=== PATIENT | female | born 1955 | race American Indian/Alaskan Native ===

== ENCOUNTER 2016-06-11 13:21 | Emergency (ER) | payer MEDICARE, OTHER ==
[2016-06-11 13:48] VITALS: BP 129/54
[2016-06-11] MEDS ORDERED: Sodium Chloride 0.9% 1,000 ML IV ONE (14:36)
--- NOTE | 2016-06-11 14:44 | EDM.PDOC ---
ED HPI GI/ABDOMINAL - General Chief Complaint: Abdominal Pain Stated Complaint: EXCRUTIATING ABD PAIN Time Seen by Provider: 06/11/16 14:35 Source of Information: Reports: Patient History Limitations: Reports: No limitations - History of Present Illness INITIAL COMMENTS - FREE TEXT/NARRATIVE: This 61 yo female patient reports to the ED with lower abdominal pain. The patient reports her pain started about 4 days ago and has been consistent since the start of her pain. The patient reports she has been drinking a lot of water over the past couple of weeks, but has noticed that she has been getting up 6- 10 times to go to the bathroom. The patient reports she has had a previous similar episode due to kidney stones. The patient attempted to be seen at the [facility], but was sent directly to the ED without being seen. Symptom Onset Date: 06/08/16 Timing/Duration: Reports: Constant, Getting worse Location: suprapubic Quality: Reports: ache, cramping Severity: severe Worsens with: Reports: palpation Associated Symptoms (-Female): Reports: denies other symptoms - Related Data Allergies/ADRs: Allergies Allergy/AdvReac Type Severity Reaction Status Date / Time acetaminophen Allergy Nausea and Verified 06/11/16 13:38 [From Darvocet-N 100] Vomiting codeine Allergy Nausea Verified 06/11/16 13:38 gabapentin Allergy Swelling Verified 06/11/16 13:39 pregabalin [From Lyrica] Allergy Weakness Verified 06/11/16 13:39 propoxyphene Allergy Nausea and Verified 06/11/16 13:38 Vomiting propoxyphene napsylate Allergy Nausea and Verified 06/11/16 13:38 [From Darvocet-N 100] Vomiting tramadol Allergy Hives Verified 06/11/16 13:39 Home Meds: Home Meds Aspirin [Halfprin] 81 mg PO DAILY 02/24/13 [History] Clopidogrel [Plavix] 75 mg PO DAILY 02/24/13 [History] Ezetimibe [Zetia] 10 mg PO DAILY 02/24/13 [History] Lisinopril 20 mg PO DAILY 02/24/13 [History] Nitroglycerin [Nitrostat] 0.4 mg SL ASDIRECTED PRN 02/24/13 [History] Pantoprazole Sodium [Protonix] 40 mg PO DAILY 12/07/13 [History] Ranitidine HCl 150 mg PO BID 08/15/15 [History] Simvastatin [Zocor] 40 mg PO BEDTIME 08/15/15 [History] metFORMIN HCl [Metformin HCl] 250 mg PO DAILY 08/15/15 [History] Past Medical History HEENT History: Reports: Hard of hearing, Impaired vision Cardiovascular History: Reports: High cholesterol, Hypertension Respiratory History: Reports: None Gastrointestinal History: Reports: GERD Genitourinary History: Reports: None Other OB/BYN History: tieze disease Musculoskeletal History: Reports: None, Fibromyalgia Endocrine/Metabolic History: Reports: Diabetes, type II Immunologic History: Reports: None Oncologic (Cancer) History: Reports: None Social & Family History - Family History Family Medical History: Noncontributory - Tobacco Use Smoking Status *Q: Former Smoker - Caffeine Use Caffeine Use: Reports: Coffee - Recreational Drug Use Recreational Drug Use: No ED ROS GENERAL - Review of Systems Review Of Systems: ROS reveals no pertinent complaints other than HPI. ED EXAM, GI/ABD - Physical Exam Exam: See Below Exam Limited By: No limitations General Appearance: alert, WD/WN, moderate distress, obese Eyes: bilateral: normal appearance, EOMI Ears: normal external exam, normal canal, hearing grossly normal, normal TMs Nose: normal inspection, normal mucosa, no blood Throat/Mouth: Normal inspection, Normal lips, Normal teeth, Normal gums, Normal oropharynx, Normal voice, No airway compromise Head: atraumatic, normocephalic Neck: normal inspection, supple, non-tender, full range of motion Respiratory/Chest: no respiratory distress, lungs clear, normal breath sounds, no accessory muscle use, chest non-tender Cardiovascular: normal peripheral pulses, regular rate, rhythm, no edema, no gallop, no JVD, no murmur, no rub GI/Abdominal: normal bowel sounds, soft, no organomegaly, no distention, no abnormal bruit, no mass, tenderness (lower abdomen) (Female) Exam: Deferred Rectal (Female) Exam: Deferred Back Exam: normal inspection, full range of motion, NT Extremities: normal inspection, normal range of motion, non-tender, normal capillary refill, no pedal edema Neurological: alert, oriented, CN II-XII intact, normal cognition, normal gait, normal reflexes, no motor/sensory deficits Psychiatric: normal affect, normal mood Skin Exam: Warm, Dry, Intact, Normal color, No rash Lymphatic: no adenopathy Course - Vital Signs Last Recorded V/S: Last Vital Signs Temp 36.2 C 06/11/16 13:40 Pulse 82 06/11/16 13:40 Resp 14 06/11/16 13:40 BP 129/54 L 06/11/16 13:40 Pulse Ox - Orders/Labs/Meds Orders: Active Orders 24 hr Category Date Time Status CULTURE BLOOD [BC] Stat Lab 06/11/16 14:18 Received CULTURE BLOOD [BC] Stat Lab 06/11/16 14:24 Results Blood Culture x2 Reflex Set [OM.PC] Stat Oth 06/11/16 14:10 Ordered Labs: Laboratory Tests 06/11/16 06/11/16 06/11/16 Range/Units 13:58 13:58 14:24 WBC 11.5 H (5.0-10.0) 10^3/uL RBC 5.05 (4.2-5.4) 10^6/uL Hgb 14.4 (12.0-16.0) g/dL Hct 43.0 (37.0-47.0) % MCV 85.1 (80-100) fL MCH 28.5 (27.0-34.0) pg MCHC 33.5 (33.0-35.0) g/dL Plt Count 286 (150-450) 10^3/uL Neut % (Auto) 65.9 (42.2-75.2) % Lymph % (Auto) 24.8 (20.5-50.1) % [place] % (Auto) 7.6 (2-8) % Eos % (Auto) 1.4 (1.0-3.0) % Baso % (Auto) 0.3 (0.0-1.0) % Sodium (135-145) mmol/L Potassium (3.6-5.0) mmol/L Chloride (101-111) mmol/L Carbon Dioxide (21.0-31.0) mmol/L Anion Gap BUN (7-18) mg/dL Creatinine (0.6-1.3) mg/dL Est Cr Clr Drug Dosing mL/min Estimated GFR (MDRD) BUN/Creatinine Ratio Glucose (74-105) mg/dL Lactic Acid (0.5-2.2) mmol/L Calcium (8.4-10.2) mg/dl Magnesium (1.8-2.5) mg/dL Total Bilirubin (0.2-1.0) mg/dL AST (10-42) IU/L ALT (10-60) IU/L Alkaline Phosphatase (42-121) IU/L Ammonia (11-35) umol/L Total Protein (6.7-8.2) g/dl Albumin (3.2-5.5) g/dl Globulin Albumin/Globulin Ratio Amylase (28-100) U/L Lipase (22-51) U/L Urine Color Yellow (YELLOW) Urine Appearance Slightly cloudy (CLEAR) Urine pH 5.0 (5.0-9.0) Ur Specific [place] 1.020 (1.005-1.030) Urine Protein Negative (NEGATIVE) Urine Glucose (UA) Negative (NEGATIVE) Urine Ketones Negative (NEGATIVE) Urine Occult Blood Negative (NEGATIVE) Urine Nitrite Negative (NEGATIVE) Urine Bilirubin Negative (NEGATIVE) Urine Urobilinogen 0.2 (0.2-1.0) mg/dL Ur Leukocyte Esterase Trace H (NEGATIVE) Urine RBC 0-5 /HPF Urine WBC 5-10 H (0-5/HPF) /HPF Ur Epithelial Cells Few /HPF Amorphous Sediment Few (0/HPF) /HPF Urine Bacteria Few (0-FEW/HPF) /HPF Salicylates Urine Opiates Screen Negative (NEGATIVE) Ur Oxycodone Screen Negative (NEGATIVE) Urine Methadone Screen Negative (NEGATIVE) Acetaminophen Ur Barbiturates Screen Negative (NEGATIVE) U Tricyclic Antidepress Negative (NEGATIVE) Ur Phencyclidine Scrn Negative (NEGATIVE) Ur Amphetamine Screen Negative (NEGATIVE) U Methamphetamines Scrn Positive H (NEGATIVE) Urine MDMA Screen Negative (NEGATIVE) U Benzodiazepines Scrn Negative (NEGATIVE) Urine Cocaine Screen Negative (NEGATIVE) U Marijuana (THC) Screen Negative (NEGATIVE) Ethyl Alcohol mg/dL 06/11/16 06/11/16 06/11/16 Range/Units 14:24 14:24 14:24 WBC (5.0-10.0) 10^3/uL RBC (4.2-5.4) 10^6/uL Hgb (12.0-16.0) g/dL Hct (37.0-47.0) % MCV (80-100) fL MCH (27.0-34.0) pg MCHC (33.0-35.0) g/dL Plt Count (150-450) 10^3/uL Neut % (Auto) (42.2-75.2) % Lymph % (Auto) (20.5-50.1) % [place] % (Auto) (2-8) % Eos % (Auto) (1.0-3.0) % Baso % (Auto) (0.0-1.0) % Sodium 137 (135-145) mmol/L Potassium 4.3 (3.6-5.0) mmol/L Chloride 102 (101-111) mmol/L Carbon Dioxide 26.0 (21.0-31.0) mmol/L Anion Gap 13.3 BUN 19 H (7-18) mg/dL Creatinine 0.8 (0.6-1.3) mg/dL Est Cr Clr Drug Dosing 78.85 mL/min Estimated GFR (MDRD) > 60 BUN/Creatinine Ratio 23.75 Glucose 142 H (74-105) mg/dL Lactic Acid 2.2 (0.5-2.2) mmol/L Calcium 9.2 (8.4-10.2) mg/dl Magnesium 1.8 (1.8-2.5) mg/dL Total Bilirubin 0.4 (0.2-1.0) mg/dL AST 25 (10-42) IU/L ALT 31 (10-60) IU/L Alkaline Phosphatase 103 (42-121) IU/L Ammonia 36 H (11-35) umol/L Total Protein 6.9 (6.7-8.2) g/dl Albumin 4.1 (3.2-5.5) g/dl Globulin 2.8 Albumin/Globulin Ratio 1.46 Amylase 34 (28-100) U/L Lipase 26 (22-51) U/L Urine Color (YELLOW) Urine Appearance (CLEAR) Urine pH (5.0-9.0) Ur Specific [place] (1.005-1.030) Urine Protein (NEGATIVE) Urine Glucose (UA) (NEGATIVE) Urine Ketones (NEGATIVE) Urine Occult Blood (NEGATIVE) Urine Nitrite (NEGATIVE) Urine Bilirubin (NEGATIVE) Urine Urobilinogen (0.2-1.0) mg/dL Ur Leukocyte Esterase (NEGATIVE) Urine RBC /HPF Urine WBC (0-5/HPF) /HPF Ur Epithelial Cells /HPF Amorphous Sediment (0/HPF) /HPF Urine Bacteria (0-FEW/HPF) /HPF Salicylates < 4 Urine Opiates Screen (NEGATIVE) Ur Oxycodone Screen (NEGATIVE) Urine Methadone Screen (NEGATIVE) Acetaminophen < 10 Ur Barbiturates Screen (NEGATIVE) U Tricyclic Antidepress (NEGATIVE) Ur Phencyclidine Scrn (NEGATIVE) Ur Amphetamine Screen (NEGATIVE) U Methamphetamines Scrn (NEGATIVE) Urine MDMA Screen (NEGATIVE) U Benzodiazepines Scrn (NEGATIVE) Urine Cocaine Screen (NEGATIVE) U Marijuana (THC) Screen (NEGATIVE) Ethyl Alcohol < 5 mg/dL Meds: Medications Discontinued Medications Generic Name Dose Route Start Last Admin Trade Name Freq PRN Reason Stop Dose Admin Sodium Chloride 1,000 mls @ 999 mls/hr 06/11/16 14:36 06/11/16 14:56 Normal Saline IV 06/11/16 15:36 999 mls/hr .BOLUS ONE Administration Iopamidol 100 ml 06/11/16 15:31 06/11/16 16:16 Isovue-300 (61%) IVPUSH 06/11/16 15:32 100 ml ONETIME ONE Administration - Re-Assessments/Exams Free Text/Narrative Re-Assessment/Exam: 06/11/16 15:31 The patient was advised of the lab results. The patient was informed of the need for a CT of her abdomen. Departure - Departure Time of Disposition: 16:44 Disposition: Home, Self-Care 01 Condition: fair Clinical Impression: Urine retention UTI (urinary tract infection) Qualifiers: Urinary tract infection type: site unspecified Hematuria presence: without hematuria Qualified Code(s): N39.0 - Urinary tract infection, site not specified Instructions: Urinary Tract Infection, Adult, [id number], Acute Urinary Retention, Female, [id number] Forms: ED Department Discharge Care Plan Goals: The patient was advised of the examination, lab and CT results during the visit. The patient was given a script for Cipro (500 mg) #10 to take 1 by mouth 2 times per day for 5 days and Pyridium (200 mg) #6 to take 1 by mouth 3 times per day for 2 days. The patient should follow-up with her primary care facility for continued evaluation and further management. If the patient has any additional symptoms or concerns, the patient should visit her primary care facility or return to the emergency department. - My Orders Last 24 Hours: My Active Orders 06/11/16 14:10 Blood Culture x2 Reflex Set [OM.PC] Stat 06/11/16 14:18 CULTURE BLOOD [BC] Stat 06/11/16 14:24 CULTURE BLOOD [BC] Stat - Assessment/Plan Last 24 Hours: My Active Orders 06/11/16 14:10 Blood Culture x2 Reflex Set [OM.PC] Stat 06/11/16 14:18 CULTURE BLOOD [BC] Stat 06/11/16 14:24 CULTURE BLOOD [BC] Stat
[2016-06-11 14:55] LABS: CHLORIDE,CL 102 mmol/L (101-111); SODIUM,NA 137 mmol/L (135-145)
[2016-06-11 14:57] LABS: ACETAMINOPHEN < 10
[2016-06-11] MEDS ORDERED: Iopamidol 612 MG/ML 100 ML Bottle IVPUSH ONE (15:31)
--- NOTE | 2016-06-11 16:28 | CT ---
Clinical history: 61-year-old female with lower abdominal pain (white blood cell count 11,000). Scan technique: Volume acquisition of data from the abdomen and pelvis obtained without oral contras t but during intravenous administration of nonionic Isovue contrast while patient was lying supine o n the Siemens multi slice CT scanner [place], [place]. All data archived in the PACS system for storage, reformatting and study. Interpretation: 1. Cholecystectomy. Fatty liver with isolated small cysts left lobe. 2. Stomach, spleen, pancreas and adrenal glands anatomically correct and otherwise negative. 3. Atheromatous calcifications normal caliber aortoiliac vessels. Normal reniform size axis and conf iguration without sign of cortical mass lesion, nephrolithiasis or obstructive uropathy. 4. No sign of ventral wall or inguinal hernia. No pelvic or abdominal mass lesion, (apparent hystere ctomy), inflammatory "dirty" peritoneal fat, abscess, retroperitoneal lymphadenopathy, mechanical jacob wel obstruction, ascites or free intraperitoneal air. No diverticulitis. 5. Osteoporosis, multilevel disc disease and arthritis of the spine. 6. Normal cardiac silhouette. Lung bases clear. CONCLUSION: Cholecystectomy and fatty liver. No acute intraperitoneal abnormality.
== END 2016-06-11 17:15 | disposition home or self-care (01) ==
LOC: DL.ED 13:21
DX: N39.0 Urinary tract infection, site not specified (principal); E78.00 Pure hypercholesterolemia, unspecified; I10 Essential (primary) hypertension; K21.9 Gastro-esophageal reflux disease without esophagitis; E11.9 Type 2 diabetes mellitus without complications; Z88.5 Allergy status to narcotic agent; Z88.6 Allergy status to analgesic agent; Z88.8 Allergy status to other drugs, medicaments and biological substances; Z79.82 Long term (current) use of aspirin; Z79.899 Other long term (current) drug therapy; Z79.84 Long term (current) use of oral hypoglycemic drugs; Z87.891 Personal history of nicotine dependence
CPT/HCPCS: 36415; 74177; 80053; 80305; 81001; 82140; 82150; 83605; 83690; 83735; 85025; 87040; 96360; 96361; 99284; G0480; J7030; Q9967; 99283

== ENCOUNTER 2017-01-28 10:08 | Emergency (ER) | payer MEDICARE, OTHER ==
[2017-01-28] MEDS ORDERED: Sodium Chloride 0.9% 10 ML Syringe FLUSH PRN (10:27)
[2017-01-28 10:42] VITALS: BP 165/72
--- NOTE | 2017-01-28 10:44 | CR ---
Clinical history: 61-year-old female emergency Department with clinical "CVA". Interpretation: AP portable chest film unremarkable. Normal cardiac silhouette without cephalization of vascular flow, signs of alveolar edema or dependen t effusion. Reasonable inspiratory effort obese female without focal lobar atelectasis/collapse, segmental infilt rate, lung mass or hilar lymphadenopathy. No pneumothorax or free subdiaphragmatic air. CONCLUSION: No acute cardiopulmonary abnormality.
[2017-01-28 10:48] LABS: CHLORIDE,CL 103 mmol/L (101-111); SODIUM,NA 139 mmol/L (135-145)
--- NOTE | 2017-01-28 10:51 | CT ---
Clinical history: 1-year-old female history of "CVA" present now with numbness and tingling reported on December 2013 CT exam to have "old large lacunar infarct posterior limb internal capsule and persis tent asymmetric loss anterior horn right ventricle (noted April 2013). Follow-up evaluation please . Scan technique: Volume acquisition of data emergency unenhanced CT scan of the head and brain obtaine d with the patient lying supine on the Siemens multi slice CT scanner [facility]. All data archived in the PACS system for storage, reformatting and study. Interpretation: 1. Chronic effacement anterior horn right lateral ventricle and large lacunar type infarct posterior limb internal capsule on the right unchanged when compared directly to previous CT exam to January 07. 2. *New lacunar infarct, without surrounding edema or mass effect, contralateral internal capsule (po sterior limb) left cerebral hemisphere. Other signs of multi-infarct ischemic disease periventricular white matter scattered both cerebral hemispheres. 3. No supratentorial or posterior fossa mass lesion. Cerebellum and brainstem unremarkable. 4. No sign of acute intracerebral/intraventricular/subarachnoid bleed. No extracerebral epidural or s ubdural hematoma. 5. Cerebellum and brainstem unremarkable and unchanged since 2013. 6. Symmetric clear pneumatization of the paranasal sinuses. Nasal septum is straight in the midline. Mastoids unremarkable. CONCLUSION: Abnormal (see above). Multi-infarct ischemic disease. No sign of acute intracranial bleed .
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
[2017-01-28] MEDS ORDERED: Aspirin 81 MG Tab.Chew PO ONE (10:58)
--- NOTE | 2017-02-01 20:34 | EKG ---
01/28/2017 - RADHA LIPSCOMB - FINDINGS: I reviewed the EKG and agree with the machine's reading. [facility] /[id number]
== END 2017-01-28 11:40 ==
LOC: DL.ED 10:08
DX: I63.9 Cerebral infarction, unspecified (principal); Z87.891 Personal history of nicotine dependence; I10 Essential (primary) hypertension; E78.00 Pure hypercholesterolemia, unspecified; K21.9 Gastro-esophageal reflux disease without esophagitis; E11.9 Type 2 diabetes mellitus without complications; Z79.84 Long term (current) use of oral hypoglycemic drugs; Z79.02 Long term (current) use of antithrombotics/antiplatelets; Z79.899 Other long term (current) drug therapy; Z88.5 Allergy status to narcotic agent; Z88.8 Allergy status to other drugs, medicaments and biological substances; Z88.6 Allergy status to analgesic agent; Z86.73 Personal history of transient ischemic attack (TIA), and cerebral infarction without residual deficits
CPT/HCPCS: 36415; 70450; 71010; 80053; 84484; 85025; 85610; 93005; 99285; A9270; J7050; 93010

== ENCOUNTER 2017-03-07 19:23 | Emergency (ER) | payer MEDICARE, OTHER, MEDICAID ==
[2017-03-07] MEDS ORDERED: Morphine 2 MG/ML Syringe IVPUSH ONE (19:44)
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
[2017-03-07] MEDS ORDERED: Ondansetron 4 MG/2 ML SDV IV ONE (19:45)
[2017-03-07 20:16] LABS: CHLORIDE,CL 104 mmol/L (101-111); SODIUM,NA 135 mmol/L (135-145)
[2017-03-07 22:45] VITALS: BP 136/59
--- NOTE | 2017-03-10 16:33 | EKG ---
03/07/2017 RADHA MONREAL I reviewed the EKG and agree with the machine's reading. [facility] /[id number]
== END 2017-03-07 22:44 | disposition home or self-care (01) ==
LOC: DL.ED 19:23
DX: N64.4 Mastodynia (principal); I10 Essential (primary) hypertension; E78.00 Pure hypercholesterolemia, unspecified; K21.9 Gastro-esophageal reflux disease without esophagitis; E11.9 Type 2 diabetes mellitus without complications; Z95.5 Presence of coronary angioplasty implant and graft; Z79.82 Long term (current) use of aspirin; Z79.02 Long term (current) use of antithrombotics/antiplatelets; Z79.84 Long term (current) use of oral hypoglycemic drugs; Z79.899 Other long term (current) drug therapy; Z87.891 Personal history of nicotine dependence
CPT/HCPCS: 36415; 71010; 80053; 82553; 84484; 85025; 85379; 85610; 86140; 93005; 93010; 99284; J2270; J2405; 96374; 96375

== ENCOUNTER 2017-05-27 19:59 | Emergency (ER) | payer MEDICARE, OTHER ==
[2017-05-27 20:28] VITALS: BP 197/95
[2017-05-27 20:29] LABS: CHLORIDE,CL 101 mmol/L (101-111); SODIUM,NA 136 mmol/L (135-145)
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
--- NOTE | 2017-06-02 08:58 | EKG ---
05/27/2017- RADHA LIPSCOMB - FINDINGS: EKG, per my reading, shows sinus rhythm at the rate of [address]ressions. [facility] /[id number]
== END 2017-05-27 21:20 ==
LOC: DL.ED 19:59
DX: I63.9 Cerebral infarction, unspecified (principal); R29.710 NIHSS score 10; G83.20 Monoplegia of upper limb affecting unspecified side; E78.00 Pure hypercholesterolemia, unspecified; I10 Essential (primary) hypertension; E11.9 Type 2 diabetes mellitus without complications; Z87.891 Personal history of nicotine dependence; Z88.5 Allergy status to narcotic agent; Z88.8 Allergy status to other drugs, medicaments and biological substances; Z79.82 Long term (current) use of aspirin; Z79.84 Long term (current) use of oral hypoglycemic drugs; Z79.899 Other long term (current) drug therapy
CPT/HCPCS: 36415; 70450; 80053; 83735; 84484; 85025; 85610; 93005; 93010; 99285

== ENCOUNTER 2017-07-08 13:57 | Emergency (ER) | payer MEDICARE, OTHER ==
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
[2017-07-08 14:14] VITALS: BP 151/66
[2017-07-08 15:19] LABS: CHLORIDE,CL 104 mmol/L (101-111); SODIUM,NA 136 mmol/L (135-145)
== END 2017-07-08 18:48 | disposition left against medical advice (07) ==
LOC: DL.ED 13:57
DX: R06.02 Shortness of breath (principal); R05 Cough; E78.00 Pure hypercholesterolemia, unspecified; I10 Essential (primary) hypertension; I25.2 Old myocardial infarction; K21.9 Gastro-esophageal reflux disease without esophagitis; E11.9 Type 2 diabetes mellitus without complications; Z88.8 Allergy status to other drugs, medicaments and biological substances; Z88.5 Allergy status to narcotic agent; Z87.891 Personal history of nicotine dependence
CPT/HCPCS: 36415; 71046; 80053; 85025; 86308; 87081; 87430; 87804; 99282

== ENCOUNTER 2018-08-13 14:09 | Emergency (ER) | payer MEDICARE, OTHER ==
[2018-08-13 15:28] LABS: ANION GAP 20.5; CHLORIDE,CL 100 mmol/L (101-111); SODIUM,NA 135 mmol/L (135-145)
[2018-08-13 16:41] VITALS: BP 193/75
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
== END 2018-08-13 16:10 | disposition other institution (70) ==
LOC: DL.ED 14:09
DX: I63.9 Cerebral infarction, unspecified (principal); I15.8 Other secondary hypertension; E11.9 Type 2 diabetes mellitus without complications; I10 Essential (primary) hypertension; E78.00 Pure hypercholesterolemia, unspecified; I25.2 Old myocardial infarction; K21.9 Gastro-esophageal reflux disease without esophagitis; Z79.899 Other long term (current) drug therapy; Z88.6 Allergy status to analgesic agent; Z88.5 Allergy status to narcotic agent; Z88.8 Allergy status to other drugs, medicaments and biological substances
CPT/HCPCS: 36415; 70450; 80053; 82962; 84484; 85025; 85610; 93005; 96365; 99285; J2997

== ENCOUNTER 2018-11-15 08:13 | Day surgery (SDC) | payer MEDICARE ==
[2018-11-15] MEDS ORDERED: Sodium Chloride 0.9% 10 ML Syringe IV ONE (08:14)
[2018-11-15] MEDS ORDERED: Midazolam 1 MG/ML 2 ML SDV IV ONE (08:14)
[2018-11-15] MEDS ORDERED: Dexamethasone 4 MG/ML SDV IV ONE (08:14)
[2018-11-15] MEDS ORDERED: Acetaminophen 325 MG Tab PO PRN (08:30)
[2018-11-15] MEDS ORDERED: Proparacaine 0.5% Ophth Soln 15 ML Bottle EYERT ONE (08:30)
[2018-11-15] MEDS ORDERED: Moxifloxacin 0.5% Ophth Soln 3 ML Bottle EYERT ONE (08:30)
[2018-11-15] MEDS ORDERED: Cataract Ophth Solution EYERT ONE (08:30)
[2018-11-15] MEDS ORDERED: Timolol Maleate 0.5% Ophth Soln 5 ML Bottle EYERT ONE (08:30)
[2018-11-15] MEDS ORDERED: Povidone-Iodine 5% Sterile Ophth Soln 30 ML Bottle EYERT ONE ×2 (08:30→09:45)
[2018-11-15] MEDS ORDERED: Phenylephrine 10% Ophth Soln 5 ML Bot EYERT ONE (08:30)
[2018-11-15] MEDS ORDERED: Sodium Chloride 0.9% 10 ML Syringe FLUSH PRN (08:30)
[2018-11-15] MEDS ORDERED: Phenylephrine 10% Ophth Soln 5 ML Bot EYERT PRN (08:30)
[2018-11-15] MEDS ORDERED: Ondansetron 4 MG/2 ML SDV IVPUSH PRN (08:30)
[2018-11-15] MEDS ORDERED: Lidocaine 1% 30 ML SDV INJECT ONE (09:45)
[2018-11-15] MEDS ORDERED: Tetracaine HCl/PF 0.5% 4 ML Bottle EYERT ONE (09:45)
[2018-11-15] MEDS ORDERED: Apraclonidine 0.5% Ophth Soln 5 ML Bot EYERT ONE (09:45)
[2018-11-15] MEDS ORDERED: Diclofenac Sodium 0.1% Ophth Soln 5 ML Bottle EYERT ONE (09:46)
[2018-11-15] MEDS ORDERED: Dexamethasone/Tobramycin 0.1-0.3% Ophth Oint 3.5 GM Tube EYERT ONE (09:46)
[2018-11-15] MEDS ORDERED: Balanced Salt Solution Ophth Irrig 500 ML Bottle IOCULAR ONE (09:46)
[2018-11-15] MEDS ORDERED: Chondroitin Sulfate/Hyaluronate Sodium Ophth Inj 0.75 ML Syringe EYERT ONE (09:47)
[2018-11-15] MEDS ORDERED: Vancomycin 500 MG SDV EYERT ONE (09:47)
[2018-11-15 11:09] VITALS: BP 141/57
--- NOTE | 2018-11-15 16:24 | OR ---
DATE: 11/15/2018 PREOPERATIVE DIAGNOSIS: Visually significant mixed cataract, right eye. POSTOPERATIVE DIAGNOSIS: Visually significant mixed cataract, right eye. PROCEDURE: Extracapsular cataract extraction with intraocular lens implant, right eye. ANESTHESIA: Topical/local MAC. COMPLICATIONS: None. INDICATION: Ms. Ramirez was seen in the clinic. She has complained of a progressive decrease in vision. She has difficulty with bright lights and glare, difficulty seeing fine print, difficulty seeing at distance. Examination reveals mixed cataract. I offered cataract surgery and I explained risks preoperatively including, but not limited to, infection, retinal detachment, loss of vision, need for additional surgery, amongst others. We discussed implant options. She requested surgery with a monofocal implant. She is comfortable wearing spectacle correction following surgery if necessary. OPERATIVE DESCRIPTION: After informed consent was obtained and the risks, benefits, and alternatives were explained, the patient was brought to the operative suite and topical anesthesia was administered. The patient was then prepped and draped in the sterile fashion and attention was placed on the right eye. A sterile lid speculum was placed into the right eye to allow operative exposure. A full-thickness paracentesis was made in the temporal portion of the operative eye. Preservative-free lidocaine 0.1 mL was injected into the anterior chamber followed by viscoelastic. A full-thickness corneal incision was then made into the anterior chamber. A bent needle cystotome was used to create a small solis in the anterior capsule. The capsulorrhexis forceps was then used to create a 360-degree curvilinear capsulorrhexis. The nucleus was then removed using a phacoemulsification handpiece and the remaining cortical material was then removed with irrigation and aspiration handpiece. Following removal of the cortical material, the capsular bag was then inspected and noted to be free of any holes or tears. Viscoelastic was then injected into the capsular bag and the intraocular lens was inserted into the capsular bag. The viscoelastic material was then removed from both the anterior and posterior chambers and from behind the IOL. The lens and capsular bag were then reinspected. The IOL was well centered and the capsular bag intact. The wound and paracentesis sites were inspected and hydrated with balanced saline solution. Both were found to be self- sealing. The intraocular pressure was assessed digitally and found to be within normal range. A good red reflex was noted at the completion of the procedure. No complications occurred during the operation. At the completion of the procedure, Pulll, Voltaren, and Iopidine drops were placed into the operative eye. A sterile eye shield was placed over the operative eye and the patient was transported to the postoperative recovery area having tolerated the procedure well. Postoperative instructions were given along with a postoperative appointment. The patient was advised to call with any questions or concerns. [facility] /[phone]
== END 2018-11-15 10:56 | disposition home or self-care (01) ==
LOC: DL.SDS 08:13
PROVIDERS: ATTEND Ophthalmology
DX: E11.36 Type 2 diabetes mellitus with diabetic cataract (principal); Z88.2 Allergy status to sulfonamides; Z88.5 Allergy status to narcotic agent; Z88.8 Allergy status to other drugs, medicaments and biological substances; Z91.048 Other nonmedicinal substance allergy status; Z79.82 Long term (current) use of aspirin; Z79.899 Other long term (current) drug therapy; Z79.84 Long term (current) use of oral hypoglycemic drugs
CPT/HCPCS: 66984; A9270; J1100; J2001; J2250; J3370; V2632

== ENCOUNTER 2018-12-30 14:25 | Emergency (ER) | payer MEDICARE ==
[~2018-12-30 14:25] MED LIST: Lidocaine 1% with EPINEPHrine 1:100,000 20 ML MDV ONE; Oxymetazoline 0.05% Nasal Spray 15 ML Bottle NAS ONE
[2018-12-30] MEDS ORDERED: Lidocaine 1% with EPINEPHrine 1:100,000 20 ML MDV ONE (14:26)
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
[2018-12-30 14:59] VITALS: BP 64/46; PULSE 84
[2018-12-30] MEDS ORDERED: Amoxicillin/Clavulanate K 875-125 MG Tab PO ONE (16:18)
== END 2018-12-30 16:50 | disposition home or self-care (01) ==
LOC: DL.ED 14:25
DX: R04.0 Epistaxis (principal); I25.2 Old myocardial infarction; I10 Essential (primary) hypertension; K21.9 Gastro-esophageal reflux disease without esophagitis; E11.9 Type 2 diabetes mellitus without complications; Z88.6 Allergy status to analgesic agent; Z88.5 Allergy status to narcotic agent; Z88.2 Allergy status to sulfonamides; Z88.8 Allergy status to other drugs, medicaments and biological substances; Z91.048 Other nonmedicinal substance allergy status; Z79.899 Other long term (current) drug therapy; Z79.82 Long term (current) use of aspirin; Z79.02 Long term (current) use of antithrombotics/antiplatelets
CPT/HCPCS: 30903; 36415; 85025; 99283; A9270; 30905

== ENCOUNTER 2020-05-12 17:34 | Emergency (ER) | payer MEDICAID, MEDICARE ==
[2020-05-12 17:50] VITALS: BP 194/79; PULSE 92
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
--- NOTE | 2020-05-12 18:16 | CT ---
PROCEDURE INFORMATION: Exam: CT Head Without Contrast Exam date and time: 05/12/2020 5:44 PM Age: 65 years old Clinical indication: Other: CVA TECHNIQUE: Imaging protocol: Computed tomography of the head without contrast. Radiation optimization: All CT scans at this facility use at least one of these dose optimization techniques: automated exposure control; mA and/or kV adjustment per patient size (includes targeted exams where dose is matched to clinical indication); or iterative reconstruction. COMPARISON: CT Head wo Cont 08/13/2018 2:33 PM FINDINGS: Brain: Subcentimeter lucent lesions both inferior basal ganglia right more obvious on the left, pattern stable. No mass, collection or hemorrhage. No evolving infarct. Cerebral ventricles: The ventricular system is normal in size and configuration. Bones/joints: No acute bony findings are identified. The temporal bones are symmetric and unremarkable. Paranasal sinuses: The visualized paranasal sinuses are normal. Mastoid air cells: Mastoid air cells well aerated. Soft tissues: There is no soft tissue abnormality seen. IMPRESSION: 1. Chronic change, probably chronic ischemic change as described. 2. No acute intracranial hemorrhage. 3. No acute intracranial findings. 4. No new findings
[2020-05-12 18:41] LABS: ANION GAP 15.3 mEq/L (7-13); CHLORIDE,CL 99 mmol/L (98-107); SODIUM,NA 135 mmol/L (136-145)
[2020-05-12] MEDS ORDERED: Iopamidol 612 MG/ML 100 ML Bottle IVPUSH ONE (18:54)
[2020-05-12 19:57] LABS: CORONAVIRUS COVID-19 NAA NEGATIVE (NEGATIVE)
--- NOTE | 2020-05-12 19:59 | CT ---
PROCEDURE INFORMATION: Exam: CT Head With Contrast Exam date and time: 05/12/2020 7:19 PM Age: 65 years old Clinical indication: Other: Possible stroke TECHNIQUE: Imaging protocol: Computed tomography of the head with intravenous contrast. Radiation optimization: All CT scans at this facility use at least one of these dose optimization techniques: automated exposure control; mA and/or kV adjustment per patient size (includes targeted exams where dose is matched to clinical indication); or iterative reconstruction. Contrast material: [id number]; Contrast volume: 50 ml; Contrast route: INTRAVENOUS (IV); COMPARISON: CT Head wo Cont 05/12/2020 5:44 PM FINDINGS: Brain: Subcentimeter lucent lesions both inferior basal ganglia right more obvious on the left, pattern stable. No mass, collection or hemorrhage. No evolving infarct. A normal pattern of enhancement is identified. Cerebral ventricles: The ventricular system is normal in size and configuration. Bones/joints: No acute bony findings are identified. The temporal bones are symmetric and unremarkable. Paranasal sinuses: The visualized paranasal sinuses are normal. Mastoid air cells: Mastoid air cells well aerated. Soft tissues: There is no soft tissue abnormality seen. IMPRESSION: 1. Chronic change, probably chronic ischemic change as described. 2. No acute intracranial hemorrhage. 3. No acute intracranial findings. 4. No new findings
[2020-05-12] MEDS ORDERED: 50% Dextrose in Water 50 ML Syringe IV PRN (20:45)
[2020-05-12] MEDS ORDERED: Glucagon,Human Recombinant 1 MG Vial IM PRN (20:45)
[2020-05-12] MEDS ORDERED: Insulin Regular, Human 100 Units/ML 3 ML Vial IV ONE (20:45)
== END 2020-05-12 21:45 ==
LOC: DL.ED 17:34
DX: R47.81 Slurred speech (principal); R29.810 Facial weakness; R53.1 Weakness; E78.00 Pure hypercholesterolemia, unspecified; I10 Essential (primary) hypertension; I25.2 Old myocardial infarction; K21.9 Gastro-esophageal reflux disease without esophagitis; E11.9 Type 2 diabetes mellitus without complications; Z86.73 Personal history of transient ischemic attack (TIA), and cerebral infarction without residual deficits; Z88.6 Allergy status to analgesic agent; Z88.8 Allergy status to other drugs, medicaments and biological substances; Z88.5 Allergy status to narcotic agent; Z88.2 Allergy status to sulfonamides; Z79.02 Long term (current) use of antithrombotics/antiplatelets; Z79.82 Long term (current) use of aspirin; Z79.899 Other long term (current) drug therapy; Z20.822 Contact with and (suspected) exposure to COVID-19
CPT/HCPCS: 0240U; 36415; 70450; 70460; 80053; 80305-QW; 80307; 81003; 82962; 83605; 84484; 85025; 85610; 87040; 93005; 99284; 99285-25; J1815-GY; Q9967

== ENCOUNTER 2020-06-28 11:07 | Observation (INO) | payer MEDICARE ==
[2020-06-28] MEDS ORDERED: HYDROmorphone 0.5 MG/0.5 ML Syringe IVPUSH ONE (11:21)
[2020-06-28] MEDS ORDERED: Ondansetron 4 MG/2 ML SDV IVPUSH ONE (11:38)
[2020-06-28] MEDS ORDERED: Ondansetron 4 MG/2 ML SDV ONE (11:39)
[2020-06-28 11:55] LABS: ANION GAP 16.7 mEq/L (7-13); CHLORIDE,CL 100 mmol/L (98-107); SODIUM,NA 137 mmol/L (136-145)
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
--- NOTE | 2020-06-28 12:09 | CT ---
PROCEDURE INFORMATION: Exam: CT Chest Without Contrast; Diagnostic Exam date and time: 06/28/2020 11:46 AM Age: 65 years old Clinical indication: Other: Cp short of breath; Prior surgery; Surgery date: Post-operative (0-2 days); Surgery type: RT lung biopsy yesterday TECHNIQUE: Imaging protocol: Diagnostic computed tomography of the chest without contrast. Radiation optimization: All CT scans at this facility use at least one of these dose optimization techniques: automated exposure control; mA and/or kV adjustment per patient size (includes targeted exams where dose is matched to clinical indication); or iterative reconstruction. COMPARISON: CT Chest w Cont 09/12/2017 6:52 PM FINDINGS: Lungs: Ground-glass nodule with small peripheral solid component is present. This resides in the right middle lobe. The ground-glass component measures approximately 2.4 x 2.5 cm. This solid component measures up to 0 point 8 cm in size. There is also a small nodule within the lingula measuring 0.4 x 0.3 cm. Pleural spaces: A small pneumothorax is present on the right. This occupies approximately 10% volume right hemithorax. Heart: Moderate to severe coronary atherosclerosis is present especially along course of the left anterior descending coronary artery. Aorta: Unremarkable. No aortic aneurysm. Lymph nodes: Unremarkable. No enlarged lymph nodes. Liver: A low-density lesion is present within the liver. This measures approximately 1.8 x 1.6 cm. A cannot be characterized as a simple cyst. Correlation with contrast-enhanced CT or MRI of the liver may be useful for further assessment. Gallbladder and bile ducts: The gallbladder has been removed. Bones/joints: [id number] grade degenerative changes are present within the thoracic spine with mild wedging of multiple midthoracic vertebral bodies. No definite acute compression fracture or focal lesion identified. Soft tissues: Unremarkable. IMPRESSION: 1. Small right-sided pneumothorax. This is likely related to the recent biopsy. 2. Ground-glass nodule with peripheral solid component in the right middle lobe. Presumably, this is the nodule which was targeted for biopsy. 3. Additional small nodule within the lingula. 4. Moderate to severe coronary atherosclerosis. 5. Low-density lesion within the left lobe of the liver which cannot be characterized as a cyst. Correlation with any prior studies would be useful. If unavailable, contrast-enhanced CT scan or MRI of the abdomen could be considered for more definitive assessment.
[2020-06-28] MEDS ORDERED: Acetaminophen 325 MG Tab PO PRN (13:34)
[2020-06-28] MEDS ORDERED: Bisacodyl 5 MG Tab PO PRN (13:34)
[2020-06-28] MEDS ORDERED: Docusate Sodium 100 MG Cap PO PRN (13:34)
[2020-06-28] MEDS ORDERED: Baclofen 10 MG Tab PO PRN (13:50)
[2020-06-28] MEDS ORDERED: Nitroglycerin 0.4 MG Tab.SL **OWN MED SL PRN (13:50)
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
[2020-06-28 15:39] LABS: CORONAVIRUS COVID-19 NAA NEGATIVE (NEGATIVE)
[2020-06-28] MEDS: oxyCODONE 5 MG Tab PO PRN ×2 (15:47→20:58)
[2020-06-28] MEDS ORDERED: metFORMIN 500 MG Tab PO SCH (18:00)
[2020-06-28] MEDS ORDERED: ATORVASTATIN 80 MG PO SCH (21:00)
[2020-06-29 07:42] VITALS: BP 127/62; PULSE 74
[2020-06-29] MEDS ORDERED: LISINOPRIL 40 MG **OWN MED PO SCH (09:00)
[2020-06-29] MEDS ORDERED: Aspirin 325 MG Tab.EC **OWN MED PO SCH (09:00)
[2020-06-29] MEDS ORDERED: Enoxaparin 40 MG/0.4 ML Syringe SUBCUT SCH (09:00)
[2020-06-29] MEDS ORDERED: EMPAGLIFLOZIN 10 MG PO SCH (09:00)
[2020-06-29] MEDS ORDERED: PANTOPRAZOLE 40 MG PO SCH (09:00)
--- NOTE | 2020-06-29 09:39 | CR ---
PROCEDURE INFORMATION: Exam: XR Chest Exam date and time: 06/29/2020 9:10 AM Age: 65 years old Clinical indication: Other: F/u pneumothorax; Prior surgery; Surgery date: 3-7 days post-operative; Surgery type: Lung biopsy TECHNIQUE: Imaging protocol: XR of the chest. Views: 2 views. COMPARISON: 1. CT Chest wo Cont 06/28/2020 11:46 AM 2. CR Chest 1V Frontal 06/28/2020 11:27:32 AM FINDINGS: Lungs: There is mild new patchy opacity at the right lung base, which could reflect atelectasis, contusion or pneumonia. The lungs are otherwise clear. Pleural spaces: A very small right pleural effusion has developed. The left costophrenic angle is sharp. There is a similar small right apical pneumothorax with approximately 9 mm pleural separation. No left pneumothorax. Heart/Mediastinum: The cardiomediastinal silhouette is fairly stable in appearance, allowing for differences in technique. Vasculature: Coronary artery calcification or stent is noted. Bones/joints: Unremarkable. IMPRESSION: Similar small right pneumothorax as compared with 1 day prior, with development of a very small right pleural effusion. Mild new patchy right basilar opacity could reflect atelectasis, contusion or pneumonia.
--- NOTE | 2020-06-29 10:30 | PCM.DCSUM1 ---
Discharge Summary - Hospital Course Free Text/Narrative:: 65 y/o F c/o CP and sob since having a lung biopsy yesterday at [facility] in . Pt states the provider went through her R chest wall to obtain the biopsy. She states immediately after the procedure she developed some sob and cp which has progressively gotten worse throughout the night. Pt rates the pn a 7/10, constant non radiating. Denies fever, cough, chills. IN ER , pt was found with less than 10% pneumothorax on CT and X-ray images pushed. Dr. Skaggs and [place] via [facility] were contacted by ER. Dr. Jean (I.R.) advised the pt may be admitted to observation at [place] with the pt to lay on her right side with supplemental 02 and repeat chest x-ray tomorrow. Pneumothorax/ pleurisy post lung biopsy: O2 , to stay on RT side for repeat CXR in AM. pain medications repeat CXR showed stable pneumothorax and possible tiny pleural effusion and small atelectasis versus infiltrate. Pain has subsided overnight and she required only one pain pill. Pulse OX remained normal. Pt will be going home today with pain medication. w ll add Levaquin for few days ( as prophylactic measure : doubt pneumonia) DM, HTN, h/o IN, H/o CVA, - Discharge Data Discharge Date: 06/29/20 Discharge Disposition: Home, Self-Care 01 Condition: Good - Referral to Home Health Primary Care Physician: PCP None - Discharge Plan *PRESCRIPTION DRUG MONITORING PROGRAM REVIEWED*: No *COPY OF PRESCRIPTION DRUG MONITORING REPORT IN PATIENT SUKUMAR: No Prescriptions/Med Rec: levoFLOXacin [Levaquin] 500 mg PO DAILY 7 Days #7 tab oxyCODONE 5 mg PO Q6HR PRN 3 Days #12 tablet PRN Reason: Pain (Moderate 4-6) Home Medications: Home Meds Lisinopril 40 mg PO DAILY 02/24/13 [History] Nitroglycerin [Nitrostat] 0.4 mg SL ASDIRECTED PRN 02/24/13 [History] atorvaSTATin [Lipitor] 80 mg PO BEDTIME 07/08/17 [History] Acetaminophen 1,000 mg PO Q6H PRN 11/03/18 [History] Aspirin [Ecotrin EC] 325 mg PO DAILY 11/03/18 [History] Cholecalciferol (Vitamin D3) [Vitamin D3] 25 mcg PO DAILY 06/28/20 [History] Empagliflozin [Jardiance] 10 mg PO DAILY 06/28/20 [History] Pantoprazole Sodium [Protonix] 40 mg PO DAILY 06/28/20 [History] Semaglutide [Ozempic] 1 mg SQ WEEKLY 06/28/20 [History] Acetaminophen [Tylenol] 650 mg PO Q4H PRN tablet 06/29/20 [Rx] Enoxaparin [Lovenox] 40 mg SUBCUT DAILY syringe 06/29/20 [Rx] Pantoprazole Sodium [Protonix] 0 mg PO DAILY 06/29/20 [Rx] levoFLOXacin [Levaquin] 500 mg PO DAILY 7 Days #7 tab 06/29/20 [Rx] oxyCODONE 5 mg PO Q6HR PRN 3 Days #12 tablet 06/29/20 [Rx] Oxygen Therapy Mode: Room Air Forms: ED Department Discharge Referrals: PCP,None [Primary Care Provider] - - Discharge Summary/Plan Comment DC Time >30 min.: No - General Info Date of Service: 06/29/20 Functional Status: Reports: Pain Controlled, Tolerating Diet - Review of Systems General: Denies: Fever Pulmonary: Denies: Shortness of Breath Cardiovascular: Denies: Chest Pain Gastrointestinal: Denies: Abdominal Pain Neurological: Denies: Confusion Psychiatric: Denies: Confusion - Patient Data Vitals - Most Recent: Last Vital Signs Temp 97.4 F 06/29/20 07:46 Pulse 74 06/29/20 07:46 Resp 20 06/29/20 07:46 BP 127/62 06/29/20 07:46 Pulse Ox 97 06/29/20 07:46 Weight - Most Recent: 168 lb 9.6 oz I&O - Last 24 hours: Intake & Output 06/28/20 06/29/20 06/29/20 22:59 06:59 14:59 Intake Total 200 400 Balance 200 400 Lab Results - Last 24 hrs: Laboratory Results - last 24 hr 06/28/20 06/28/20 06/28/20 Range/Units 11:27 11:27 11:27 WBC 16.1 H (5.0-10.0) 10^3/uL RBC 5.33 (4.2-5.4) 10^6/uL Hgb 14.9 (12.0-16.0) g/dL Hct 45.4 (37.0-47.0) % MCV 85.2 (80-100) fL MCH 28.0 (27.0-34.0) pg MCHC 32.8 L (33.0-35.0) g/dL Plt Count 313 (150-450) 10^3/uL Neut % (Auto) 74.8 (42.2-75.2) % Lymph % (Auto) 16.6 L (20.5-50.1) % [place] % (Auto) 7.9 (2-8) % Eos % (Auto) 0.4 L (1.0-3.0) % Baso % (Auto) 0.3 (0.0-1.0) % D-Dimer, Quantitative < 100 (0-400) ng/mL Sodium 137 (136-145) mmol/L Potassium 4.7 (3.5-5.1) mmol/L Chloride 100 (98-107) mmol/L Carbon Dioxide 25 (21-32) mmol/L Anion Gap 16.7 H (7-13) mEq/L BUN 11 (7-18) mg/dL Creatinine 0.98 (0.55-1.02) mg/dL Est Cr Clr Drug Dosing 52.86 mL/min Estimated GFR (MDRD) 57 BUN/Creatinine Ratio 11.2 (No establ ref range) Glucose 114 H (70-99) mg/dL POC Glucose (70-105) mg/dl Calcium 9.2 (8.5-10.1) mg/dL Magnesium 2.0 (1.8-2.4) mg/dL Total Bilirubin 0.8 (0.2-1.0) mg/dL AST 32 (15-37) U/L ALT 60 H (14-59) U/L Alkaline Phosphatase 137 H (46-116) U/L Troponin I < 0.017 (0.000-0.056) ng/mL Total Protein 7.1 (6.4-8.2) g/dL Albumin 4.0 (3.4-5.0) g/dL Globulin 3.1 Albumin/Globulin Ratio 1.3 Amylase 27 (25-115) U/L Lipase 83 (73-393) U/L Influenza Type A RNA (NEGATIVE) Influenza Type B RNA (NEGATIVE) SARS-CoV-2 RNA (RFAY) (NEGATIVE) 06/28/20 06/29/20 Range/Units 12:55 07:52 WBC (5.0-10.0) 10^3/uL RBC (4.2-5.4) 10^6/uL Hgb (12.0-16.0) g/dL Hct (37.0-47.0) % MCV (80-100) fL MCH (27.0-34.0) pg MCHC (33.0-35.0) g/dL Plt Count (150-450) 10^3/uL Neut % (Auto) (42.2-75.2) % Lymph % (Auto) (20.5-50.1) % [place] % (Auto) (2-8) % Eos % (Auto) (1.0-3.0) % Baso % (Auto) (0.0-1.0) % D-Dimer, Quantitative (0-400) ng/mL Sodium (136-145) mmol/L Potassium (3.5-5.1) mmol/L Chloride (98-107) mmol/L Carbon Dioxide (21-32) mmol/L Anion Gap (7-13) mEq/L BUN (7-18) mg/dL Creatinine (0.55-1.02) mg/dL Est Cr Clr Drug Dosing mL/min Estimated GFR (MDRD) BUN/Creatinine Ratio (No establ ref range) Glucose (70-99) mg/dL POC Glucose 113 H (70-105) mg/dl Calcium (8.5-10.1) mg/dL Magnesium (1.8-2.4) mg/dL Total Bilirubin (0.2-1.0) mg/dL AST (15-37) U/L ALT (14-59) U/L Alkaline Phosphatase (46-116) U/L Troponin I (0.000-0.056) ng/mL Total Protein (6.4-8.2) g/dL Albumin (3.4-5.0) g/dL Globulin Albumin/Globulin Ratio Amylase (25-115) U/L Lipase (73-393) U/L Influenza Type A RNA Negative (NEGATIVE) Influenza Type B RNA Negative (NEGATIVE) SARS-CoV-2 RNA (RAFY) Negative (NEGATIVE) Med Orders - Current: Current Medications Acetaminophen (Acetaminophen 325 Mg Tab) 650 mg PO Q4H PRN PRN Reason: Pain (Mild 1-3)/fever Last Admin: 06/29/20 10:14 Dose: 650 mg Documented by: Aspirin (Aspirin 325 Mg Tab.Ec Own Med) 325 mg PO DAILY [facility] Last Admin: 06/29/20 10:14 Dose: 325 mg Documented by: Bisacodyl (Bisacodyl 5 Mg Tab) 5 mg PO DAILY PRN PRN Reason: Constipation Docusate Sodium (Docusate Sodium 100 Mg Cap) 100 mg PO BID PRN PRN Reason: Constipation Enoxaparin Sodium (Enoxaparin 40 Mg/0.4 Ml Syringe) 40 mg SUBCUT DAILY [facility] Last Admin: 06/29/20 10:18 Dose: 40 mg Documented by: Nitroglycerin (Nitroglycerin 0.4 Mg Tab.Sl Own Med) 0.4 mg SL ASDIRECTED PRN PRN Reason: Chest Pain Atorvastatin 80 Mg * (*Own Med) 0 mg PO BEDTIME [facility] Last Admin: 06/28/20 21:00 Dose: 80 mg Documented by: Empagliflozin 10 Mg (Own Med) 0 mg PO DAILY [facility] Last Admin: 06/29/20 10:17 Dose: 10 mg Documented by: Lisinopril 40 Mg (Own Med) 0 each PO DAILY [facility] Last Admin: 06/29/20 10:13 Dose: 1 each Documented by: Pantoprazole 40 Mg * (*Own Med) 0 mg PO DAILY [facility] Last Admin: 06/29/20 10:17 Dose: 40 mg Documented by: Oxycodone HCl (Oxycodone 5 Mg Tab) 10 mg PO Q4H PRN PRN Reason: Pain (moderate 4-6) Last Admin: 06/28/20 20:58 Dose: 10 mg Documented by: Discontinued Medications Baclofen (Baclofen 10 Mg Tab) 10 mg PO BEDTIME PRN PRN Reason: Muscle Spasm Hydromorphone HCl (Hydromorphone 0.5 Mg/0.5 Ml Syringe) 0.5 mg IVPUSH ONETIME ONE Stop: 06/28/20 11:22 Last Admin: 06/28/20 11:34 Dose: 0.5 mg Documented by: Metformin HCl (Metformin 500 Mg Tab) 1,000 mg PO BIDMEALS JOSE Ondansetron HCl (Ondansetron 4 Mg/2 Ml Sdv) 4 mg IVPUSH ONETIME ONE Stop: 06/28/20 11:39 Last Admin: 06/28/20 11:40 Dose: 4 mg Documented by: Ondansetron HCl (Ondansetron 4 Mg/2 Ml Sdv) Confirm Administered Dose 4 mg .ROUTE .STK-MED ONE Stop: 06/28/20 11:40 Last Admin: 06/28/20 11:56 Dose: Not Given Documented by: - Exam Quality Assessment: Denies: Supplemental Oxygen General: Reports: Oriented, Cooperative HEENT: Reports: EOMI Lungs: Reports: Normal Respiratory Effort GI/Abdominal Exam: Soft Back Exam: Reports: Full Range of Motion Extremities: Normal Inspection Skin: Reports: Intact Neurological: Reports: No New Focal Deficit Psy/Mental Status: Reports: Normal Affect
== END 2020-06-29 12:30 | disposition home or self-care (01) ==
LOC: DL.ED 11:07 → DL.MS 12:50
PROVIDERS: ADMIT Family Medicine; ATTEND Internal Medicine
DX: J95.811 Postprocedural pneumothorax (principal); I25.10 Atherosclerotic heart disease of native coronary artery without angina pectoris; I10 Essential (primary) hypertension; E11.9 Type 2 diabetes mellitus without complications; I25.2 Old myocardial infarction; E78.00 Pure hypercholesterolemia, unspecified; K21.9 Gastro-esophageal reflux disease without esophagitis; M79.7 Fibromyalgia; Z88.2 Allergy status to sulfonamides; Z88.5 Allergy status to narcotic agent; Z20.822 Contact with and (suspected) exposure to COVID-19; Z88.8 Allergy status to other drugs, medicaments and biological substances; Z79.84 Long term (current) use of oral hypoglycemic drugs; Z79.82 Long term (current) use of aspirin; Z79.899 Other long term (current) drug therapy; Z86.73 Personal history of transient ischemic attack (TIA), and cerebral infarction without residual deficits; Z95.5 Presence of coronary angioplasty implant and graft; Z98.890 Other specified postprocedural states; Z87.891 Personal history of nicotine dependence
CPT/HCPCS: 0240U; 36415; 71045; 71046; 71250; 80053; 82150; 82962; 83690; 83735; 84484; 85025; 85379; 93005; 96372; 96374; 96375; 99217; 99219; 99284; 99285-25; A9270-GY; G0378; J1170; J1650; J2405

== ENCOUNTER 2020-10-21 16:46 | Emergency (ER) | payer MEDICARE ==
[2020-10-21] MEDS ORDERED: Sodium Chloride 0.9% 10 ML Syringe FLUSH PRN (16:54)
[2020-10-21 17:09] VITALS: BP 174/62; PULSE 77
--- NOTE | 2020-10-21 17:10 | CR ---
PROCEDURE INFORMATION: Exam: XR Chest Exam date and time: 10/21/2020 5:02 PM Age: 65 years old Clinical indication: Left-sided chest pain TECHNIQUE: Imaging protocol: XR of the chest. Views: 1 view. COMPARISON: CR Chest 2V 06/29/2020 9:10 AM FINDINGS: Lungs: Clear lungs. Pleural spaces: No pneumothorax. No sizable pleural effusion. Heart/Mediastinum: No cardiomegaly. Bones/joints: Unremarkable. IMPRESSION: Clear lungs.
--- NOTE | 2020-10-21 17:17 | CT ---
PROCEDURE INFORMATION: Exam: CT Head Without Contrast Exam date and time: 10/21/2020 4:57 PM Age: 65 years old Clinical indication: Stroke code: Left sided numbness and weakness TECHNIQUE: Imaging protocol: Computed tomography of the head without contrast. Radiation optimization: All CT scans at this facility use at least one of these dose optimization techniques: automated exposure control; mA and/or kV adjustment per patient size (includes targeted exams where dose is matched to clinical indication); or iterative reconstruction. COMPARISON: CT Head w Cont 05/12/2020 7:19 PM FINDINGS: Brain: Age-related involutional changes and chronic microvascular ischemic disease. Chronic lacunar infarct versus prominent VR space within and the inferior right basal ganglia. No evidence for acute transcortical infarct. No mass effect or midline shift. No extra-axial collection. No acute intracranial hemorrhage. Basal cisterns are patent. Cerebral ventricles: No ventriculomegaly. Paranasal sinuses: Visualized sinuses are unremarkable. No fluid levels. Mastoid air cells: Visualized mastoid air cells are well aerated. Orbital cavity: Bilateral cataract surgery. Bones/joints: Unremarkable. No acute fracture. Soft tissues: Unremarkable. IMPRESSION: No evidence for acute transcortical infarct, acute intracranial hemorrhage, or mass effect. Jasmyn Stroke Program Early CT Score (ASPECTS) = 10
[2020-10-21 17:38] LABS: ANION GAP 11.1 mEq/L (7-13); CHLORIDE,CL 101 mmol/L (98-107); SODIUM,NA 137 mmol/L (136-145)
[2020-10-21 17:39] LABS: PTT,PARTIAL THROMBOPLSTIN TIME 23.2 SEC (22.0-34.0)
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
== END 2020-10-21 18:04 | disposition home or self-care (01) ==
LOC: DL.ED 16:46
DX: R20.2 Paresthesia of skin (principal); R07.89 Other chest pain; I44.4 Left anterior fascicular block; E78.00 Pure hypercholesterolemia, unspecified; I10 Essential (primary) hypertension; I25.2 Old myocardial infarction; J44.9 Chronic obstructive pulmonary disease, unspecified; K21.9 Gastro-esophageal reflux disease without esophagitis; E11.9 Type 2 diabetes mellitus without complications; Z88.8 Allergy status to other drugs, medicaments and biological substances; Z88.5 Allergy status to narcotic agent; Z88.6 Allergy status to analgesic agent; Z88.2 Allergy status to sulfonamides; Z79.82 Long term (current) use of aspirin; Z79.899 Other long term (current) drug therapy
CPT/HCPCS: 36415; 70450; 71045; 80053; 80307; 81003; 82947; 83880; 84484; 85025; 85610; 85730; 86140; 93005; 99285-25

== ENCOUNTER 2020-11-15 11:53 | Emergency (ER) | payer MEDICARE ==
[2020-11-15 12:31] VITALS: BP 159/82; PULSE 84
[2020-11-15] MEDS ORDERED: Sodium Chloride 0.9% 1,000 ML IV ONE (12:45)
[2020-11-15] MEDS: Ketorolac 30 MG/ML SDV IVPUSH ONE ×2 (12:59→13:03)
[2020-11-15] MEDS ORDERED: Morphine 2 MG/ML SYRINGE IVPUSH ONE (13:02)
[2020-11-15 13:39] LABS: ANION GAP 13.2 mEq/L (7-13); CHLORIDE,CL 102 mmol/L (98-107); SODIUM,NA 139 mmol/L (136-145)
--- NOTE | 2020-11-15 13:50 | CT ---
PROCEDURE INFORMATION: Exam: CT Abdomen Without Contrast Exam date and time: 11/15/2020 1:11 PM Age: 65 years old Clinical indication: Abdominal pain; Flank; Right; Additional info: Right sided kidney stone? ? TECHNIQUE: Imaging protocol: Computed tomography images of the abdomen without contrast. Radiation optimization: All CT scans at this facility use at least one of these dose optimization techniques: automated exposure control; mA and/or kV adjustment per patient size (includes targeted exams where dose is matched to clinical indication); or iterative reconstruction. COMPARISON: CT Abdomen Pelvis w Cont 06/11/2016 3:59 PM FINDINGS: Lungs: The lung bases are clear. There are no pleural effusions. Liver: The liver is normal in size. There is a 1.9 cm low-density lesion in the left hepatic lobe, most consistent with a benign hepatic cyst. Gallbladder and bile ducts: The gallbladder is surgically absent. There is no biliary ductal dilatation. Pancreas: The pancreas is within normal limits. Spleen: The spleen is normal in size. Adrenals: There is multilobulated benign adenomatous enlargement of the adrenal glands. Kidneys and ureters: The kidneys are symmetric in size. There is no hydronephrosis. No renal or ureteral calculi are identified. Stomach and bowel: The stomach is not distended. No pathologically dilated small bowel loops are identified. There is no evidence of colonic wall thickening or pericolonic inflammation. Appendix: The appendix is not visualized. Intraperitoneal space: There are small mesenteric lymph nodes. There is no free air or free fluid in the abdomen or pelvis. Lymph nodes: There is hazy increased density in the central small bowel mesentery, a finding which is not new but is slightly more conspicuous today compared with the prior study. Vasculature: The aorta is normal in caliber. Bladder: The bladder wall appears thickened, but the bladder is not well distended which may account for the finding. Reproductive: The uterus is surgically absent. No adnexal masses are identified. Bones/joints: There is normal alignment in the visualized portion of the spine. No acute fractures or aggressive bone lesions are identified. Soft tissues: The soft tissues are within normal limits. IMPRESSION: 1. No evidence of hydronephrosis, renal or ureteral calculi. 2. Bladder wall thickening which may be largely due to under distension. If there is hematuria, consider correlation with cystoscopy. 3. Hazy increased density in the small bowel mesentery (so-called "sara mesentery") is a nonspecific finding which is often idiopathic. In the absence of pathologically enlarged mesenteric lymph nodes, the finding typically has a benign coarse and no further follow-up should be necessary.
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
== END 2020-11-15 14:48 | disposition home or self-care (01) ==
LOC: DL.ED 11:53
DX: N39.0 Urinary tract infection, site not specified (principal); E78.00 Pure hypercholesterolemia, unspecified; I10 Essential (primary) hypertension; I25.2 Old myocardial infarction; J44.9 Chronic obstructive pulmonary disease, unspecified; E11.9 Type 2 diabetes mellitus without complications; Z88.8 Allergy status to other drugs, medicaments and biological substances; Z88.5 Allergy status to narcotic agent; Z79.82 Long term (current) use of aspirin; Z79.899 Other long term (current) drug therapy
CPT/HCPCS: 36415; 74150; 80053; 81001; 85025; 87086; 96374; 99284-25; J1885; J2270; J7030

== ENCOUNTER 2021-03-14 16:31 | Emergency (ER) | payer MEDICARE, MEDICAID ==
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
[2021-03-14] MEDS ORDERED: Sodium Chloride 0.9% 10 ML Syringe FLUSH PRN (16:45)
[2021-03-14 17:00] VITALS: BP 169/73; PULSE 88
[2021-03-14 17:09] LABS: ANION GAP 19.2 mEq/L (7-13); CHLORIDE,CL 101 mmol/L (98-107); SODIUM,NA 140 mmol/L (136-145)
--- NOTE | 2021-03-14 17:23 | CT ---
PROCEDURE INFORMATION: Exam: CT Head Without Contrast Exam date and time: 03/14/2021 5:07 PM Age: 66 years old Clinical indication: Other: Left sided weakness; Additional info: Stroke code: Left sided weakness TECHNIQUE: Imaging protocol: Computed tomography of the head without contrast. Radiation optimization: All CT scans at this facility use at least one of these dose optimization techniques: automated exposure control; mA and/or kV adjustment per patient size (includes targeted exams where dose is matched to clinical indication); or iterative reconstruction. Other technique: STROKE PROTOCOL was implemented. COMPARISON: CT Head wo Cont 10/21/2020 4:57 PM FINDINGS: Brain: No mass effect or midline shift. No abnormal densities are seen intracranially; no sign of acute intracranial hemorrhage or cerebral edema. Cerebral ventricles: No ventriculomegaly. Paranasal sinuses: Visualized sinuses are unremarkable. No fluid levels. Mastoid air cells: Visualized mastoid air cells are well aerated. Bones/joints: Skull base and overlying calvarium are intact. No lytic or osteosclerotic lesions. Soft tissues: Unremarkable. IMPRESSION: 1. Negative head CT. 2. [place] Stroke Program Early CT Score (ASPECTS) = 10. 3. No significant interval change when compared to the CT Head wo Cont 10/21/2020 4:57 PM.
[2021-03-14] MEDS ORDERED: Sodium Chloride 0.9% 1,000 ML IV ONE (17:32)
[2021-03-14 17:35] LABS: PTT,PARTIAL THROMBOPLSTIN TIME 24.5 SEC (22.0-34.0)
[2021-03-14 18:14] LABS: CORONAVIRUS COVID-19 NAA NEGATIVE (NEGATIVE)
== END 2021-03-14 19:14 | disposition home or self-care (01) ==
LOC: DL.ED 16:31
DX: E86.0 Dehydration (principal); E78.00 Pure hypercholesterolemia, unspecified; I10 Essential (primary) hypertension; I25.2 Old myocardial infarction; J44.9 Chronic obstructive pulmonary disease, unspecified; E11.9 Type 2 diabetes mellitus without complications; Z79.82 Long term (current) use of aspirin; Z79.84 Long term (current) use of oral hypoglycemic drugs; Z79.899 Other long term (current) drug therapy; Z88.8 Allergy status to other drugs, medicaments and biological substances; Z88.5 Allergy status to narcotic agent; Z88.2 Allergy status to sulfonamides; Z91.048 Other nonmedicinal substance allergy status; Z86.73 Personal history of transient ischemic attack (TIA), and cerebral infarction without residual deficits; Z20.822 Contact with and (suspected) exposure to COVID-19
CPT/HCPCS: 0240U; 36415; 70450; 80053; 80307; 81001; 82947; 84484; 85025; 85610; 85730; 86140; 93005; 99284; J7030

== ENCOUNTER 2021-05-05 17:51 | Emergency (ER) | payer MEDICARE, MEDICAID ==
[2021-05-05 18:40] LABS: ANION GAP 14.3 mEq/L (7-13)
[2021-05-05] MEDS ORDERED: Acetaminophen/oxyCODONE 325-5 MG Tab PO ONE (18:53)
[2021-05-05 19:13] VITALS: BP 135/75; PULSE 84
[2021-05-05 19:29] LABS: CORONAVIRUS COVID-19 NAA POSITIVE (NEGATIVE)
== END 2021-05-05 19:55 | disposition home or self-care (01) ==
LOC: DL.ED 17:51
DX: U07.1 COVID-19 (principal); R07.89 Other chest pain; E78.00 Pure hypercholesterolemia, unspecified; I10 Essential (primary) hypertension; I25.2 Old myocardial infarction; E11.9 Type 2 diabetes mellitus without complications; K21.9 Gastro-esophageal reflux disease without esophagitis; Z86.73 Personal history of transient ischemic attack (TIA), and cerebral infarction without residual deficits; Z88.5 Allergy status to narcotic agent; Z88.2 Allergy status to sulfonamides; Z79.899 Other long term (current) drug therapy; Z79.82 Long term (current) use of aspirin
CPT/HCPCS: 0240U; 36415; 71045; 80053; 81003; 84484; 85025; 85379; 85610; 93005; 99285; A9270

== ENCOUNTER 2021-08-03 18:20 | Emergency (ER) | payer MEDICARE, MEDICAID ==
[2021-08-03 18:41] VITALS: PULSE 80
[2021-08-03] MEDS ORDERED: Nitroglycerin 0.4 MG Tab.SL SL ONE (18:49)
[2021-08-03 19:01] LABS: ANION GAP 13.3 mEq/L (7-13); CHLORIDE,CL 102 mmol/L (98-107); SODIUM,NA 140 mmol/L (136-145)
[2021-08-03 19:06] VITALS: BP 156/66
== END 2021-08-03 20:33 | disposition home or self-care (01) ==
LOC: DL.ED 18:20
DX: R07.89 Other chest pain (principal); E78.00 Pure hypercholesterolemia, unspecified; I25.2 Old myocardial infarction; J44.9 Chronic obstructive pulmonary disease, unspecified; K21.9 Gastro-esophageal reflux disease without esophagitis; I10 Essential (primary) hypertension; E11.9 Type 2 diabetes mellitus without complications; Z86.73 Personal history of transient ischemic attack (TIA), and cerebral infarction without residual deficits; Z90.49 Acquired absence of other specified parts of digestive tract; Z87.891 Personal history of nicotine dependence; Z79.899 Other long term (current) drug therapy; Z79.82 Long term (current) use of aspirin; Z88.8 Allergy status to other drugs, medicaments and biological substances; Z88.5 Allergy status to narcotic agent; Z88.6 Allergy status to analgesic agent; Z88.2 Allergy status to sulfonamides
CPT/HCPCS: 36415; 71045; 80053; 83605; 84484; 85025; 85379; 86140; 87040; 93005; 93010; 99284; 99285-25; A9270-GY

== ENCOUNTER 2021-09-14 15:21 | Emergency (ER) | payer MEDICARE, MEDICAID ==
[2021-09-14] MEDS ORDERED: Sodium Chloride 0.9% 10 ML Syringe FLUSH PRN (15:38)
[2021-09-14 16:44] LABS: PTT,PARTIAL THROMBOPLSTIN TIME 24.5 SEC (22.0-34.0)
[2021-09-14 16:47] LABS: ANION GAP 16.1 mEq/L (7-13); CHLORIDE,CL 103 mmol/L (98-107); SODIUM,NA 140 mmol/L (136-145)
[2021-09-14 16:51] VITALS: BP 153/78; PULSE 84
[2021-09-14 16:52] LABS: ESTIMATED GFR 57 mL/min (>=60)
[2021-09-14] MEDS ORDERED: Sodium Chloride 0.9% 1,000 ML IV ONE (17:26)
[2021-09-14 17:42] LABS: AMPHETAMINES,URINE NEGATIVE (NEGATIVE); BARBITURATES,URINE NEGATIVE (NEGATIVE); BENZODIAZEPINE,URINE NEGATIVE (NEGATIVE); MDMA (ECSTASY), URINE NEGATIVE (NEGATIVE); METHADONE,URINE NEGATIVE (NEGATIVE); METHAMPHETAMINES,URINE NEGATIVE (NEGATIVE); OPIATES,URINE POSITIVE (NEGATIVE); OXYCODONE,URINE NEGATIVE (NEGATIVE); PHENCYCLIDINE,URINE NEGATIVE (NEGATIVE); TCA,URINE NEGATIVE (NEGATIVE)
== END 2021-09-14 18:09 | disposition home or self-care (01) ==
LOC: DL.ED 15:21
DX: R55 Syncope and collapse (principal); E11.9 Type 2 diabetes mellitus without complications; I10 Essential (primary) hypertension; I25.2 Old myocardial infarction; J44.9 Chronic obstructive pulmonary disease, unspecified; K21.9 Gastro-esophageal reflux disease without esophagitis; E78.00 Pure hypercholesterolemia, unspecified; F32.A Depression, unspecified; Z79.899 Other long term (current) drug therapy; Z88.8 Allergy status to other drugs, medicaments and biological substances; Z88.2 Allergy status to sulfonamides; Z88.5 Allergy status to narcotic agent
CPT/HCPCS: 36415; 70450; 80053; 80305-QW; 80307; 81003; 82140; 82947; 84484; 85025; 85610; 85730; 93005; 93010; 99284; 99284-25; J3490

== ENCOUNTER 2022-04-24 14:22 | Emergency (ER) | payer MEDICARE, MEDICAID ==
[2022-04-24 16:12] VITALS: BP 146/70; PULSE 98
[2022-04-24 16:27] LABS: RESPIRATORY SYNCYTIAL VIR NAA NEGATIVE (NEGATIVE)
[2022-04-24 16:46] LABS: CORONAVIRUS COVID-19 NAA POSITIVE (NEGATIVE)
[2022-04-24] MEDS ORDERED: Penicillin G Benzathine/Procaine 600-600 1.2 Millunits/2 ML Syringe IM ONE (16:57)
== END 2022-04-24 17:30 | disposition home or self-care (01) ==
LOC: DL.ED 14:22
DX: U07.1 COVID-19 (principal); J02.0 Streptococcal pharyngitis; J44.9 Chronic obstructive pulmonary disease, unspecified; I25.2 Old myocardial infarction; K21.9 Gastro-esophageal reflux disease without esophagitis; E11.9 Type 2 diabetes mellitus without complications; Z86.73 Personal history of transient ischemic attack (TIA), and cerebral infarction without residual deficits; Z88.5 Allergy status to narcotic agent; Z88.8 Allergy status to other drugs, medicaments and biological substances; Z88.2 Allergy status to sulfonamides; Z79.899 Other long term (current) drug therapy; Z79.82 Long term (current) use of aspirin; Z87.891 Personal history of nicotine dependence
CPT/HCPCS: 0241U; 87430; 96372; 99283; J0558

== ENCOUNTER 2022-06-07 18:28 | Emergency (ER) | payer MEDICARE, MEDICAID ==
[2022-06-07] MEDS ORDERED: Ketorolac 10 MG Tab PO ONE (18:29)
[2022-06-07] MEDS: Sodium Chloride 0.9% 10 ML Syringe FLUSH PRN ×2 (18:53)
[2022-06-07] MEDS: fentaNYL 100 MCG/2 ML SDV IVPUSH ONE ×2 (18:53→19:43)
[2022-06-07 19:02] VITALS: BP 115/78; PULSE 180
[2022-06-07] MEDS: Adenosine 6 MG/2 ML SDV IVPUSH ONE (19:09)
[2022-06-07 19:17] LABS: PTT,PARTIAL THROMBOPLSTIN TIME 25.6 SEC (22.0-34.0)
[2022-06-07 19:21] LABS: ANION GAP 22.2 mEq/L (7-13); CHLORIDE,CL 104 mmol/L (98-107); SODIUM,NA 141 mmol/L (136-145)
[2022-06-07 19:22] LABS: ESTIMATED GFR 43 mL/min (>=60)
[2022-06-07] MEDS: Iopamidol 755 Mg/ML 100 ML Bottle IVPUSH ONE (19:30)
[2022-06-07] MEDS: Ondansetron 4 MG/2 ML SDV IVPUSH ONE (19:39)
[2022-06-07] MEDS: Sodium Chloride 0.9% 1,000 ML IV ONE (19:46)
[2022-06-07] MEDS: Ketorolac 30 MG/ML SDV IVPUSH ONE (21:01)
[2022-06-07] MEDS: methylPREDNISolone Sodium Succinate 125 MG/2 ML SDV IVPUSH ONE (21:05)
[2022-06-07 22:11] LABS: AMPHETAMINES,URINE NEGATIVE (NEGATIVE); BARBITURATES,URINE NEGATIVE (NEGATIVE); BENZODIAZEPINE,URINE NEGATIVE (NEGATIVE); MDMA (ECSTASY), URINE NEGATIVE (NEGATIVE); METHADONE,URINE NEGATIVE (NEGATIVE); METHAMPHETAMINES,URINE NEGATIVE (NEGATIVE); OPIATES,URINE NEGATIVE (NEGATIVE); OXYCODONE,URINE NEGATIVE (NEGATIVE); PHENCYCLIDINE,URINE NEGATIVE (NEGATIVE); TCA,URINE NEGATIVE (NEGATIVE)
[2022-06-07] MEDS ORDERED: Ketorolac 10 MG Tab ONE (22:51)
== END 2022-06-07 23:01 | disposition home or self-care (01) ==
LOC: DL.ED 18:28
DX: J40 Bronchitis, not specified as acute or chronic (principal); I47.1 Supraventricular tachycardia; E78.00 Pure hypercholesterolemia, unspecified; I10 Essential (primary) hypertension; I25.2 Old myocardial infarction; J44.9 Chronic obstructive pulmonary disease, unspecified; K21.9 Gastro-esophageal reflux disease without esophagitis; E11.9 Type 2 diabetes mellitus without complications; E66.9 Obesity, unspecified; Z68.27 Body mass index [BMI] 27.0-27.9, adult; Z88.8 Allergy status to other drugs, medicaments and biological substances; Z88.5 Allergy status to narcotic agent; Z88.6 Allergy status to analgesic agent; Z88.1 Allergy status to other antibiotic agents; Z88.2 Allergy status to sulfonamides; Z79.899 Other long term (current) drug therapy; Z79.82 Long term (current) use of aspirin
CPT/HCPCS: 36415; 71046; 71260; 74177; 80053; 80305; 80307; 82150; 83605; 83690; 83735; 83880; 84145; 84484; 85025; 85379; 85610; 85730; 86140; 87040; 93005; 96361; 96374; 96375; 96376; 99285; A9270; J0153; J1885; J2405; J2930; J3010; J3490; J7030; Q9967; 93010; 99284

== ENCOUNTER 2022-06-26 15:23 | Emergency (ER) | payer MEDICARE, MEDICAID ==
[2022-06-26] MEDS ORDERED: Sodium Chloride 0.9% 10 ML Syringe FLUSH PRN (15:41)
[2022-06-26 15:44] VITALS: BP 156/63; PULSE 84
[2022-06-26 16:19] LABS: ANION GAP 18.1 mEq/L (7-13); CHLORIDE,CL 102 mmol/L (98-107); SODIUM,NA 140 mmol/L (136-145)
[2022-06-26 16:27] LABS: ESTIMATED GFR 63 mL/min (>=60)
== END 2022-06-26 19:28 | disposition home or self-care (01) ==
LOC: DL.ED 15:23
DX: R07.9 Chest pain, unspecified (principal); E78.00 Pure hypercholesterolemia, unspecified; I10 Essential (primary) hypertension; I25.2 Old myocardial infarction; E11.9 Type 2 diabetes mellitus without complications; E66.9 Obesity, unspecified; Z68.30 Body mass index [BMI] 30.0-30.9, adult; Z86.73 Personal history of transient ischemic attack (TIA), and cerebral infarction without residual deficits; Z88.5 Allergy status to narcotic agent; Z88.6 Allergy status to analgesic agent; Z88.8 Allergy status to other drugs, medicaments and biological substances; Z88.2 Allergy status to sulfonamides; Z79.899 Other long term (current) drug therapy; Z79.82 Long term (current) use of aspirin; Z79.02 Long term (current) use of antithrombotics/antiplatelets
CPT/HCPCS: 36415; 70450; 71045; 80053; 81003; 83605; 83880; 84484; 85025; 87040; 93005; 93010; 99284; 99285; J3490

== ENCOUNTER 2022-12-20 12:35 | Emergency (ER) | payer MEDICARE, MEDICAID ==
[2022-12-20 12:52] LABS: BASOPHILS PERCENT AUTO 0.3 % (0.0-1.0); EOSINOPHILS PERCENT AUTO 0.5 % (1.0-3.0); HEMATOCRIT 46.2 % (37.0-47.0); HEMOGLOBIN 15.4 g/dL (12.0-16.0); LYMPHOCYTES PERCENT AUTO 18.5 % (20.5-50.1); MEAN CORPUSCULAR HEMOGLOBIN 28.5 pg (27.0-34.0); MEAN CORPUSCULAR HGB CONC 33.3 g/dL (33.0-35.0); MEAN CORPUSCULAR VOLUME 85.6 fL (80-100); MONOCYTES PERCENT AUTO 8.9 % (2-8); NEUTROPHILS PERCENT AUTO 71.8 % (42.2-75.2); PLATELET COUNT,PLT 239 10^3/uL (150-450); WHITE BLOOD CELL COUNT,WBC 14.8 10^3/uL (5.0-10.0)
[2022-12-20 13:00] VITALS: BP 181/101; PULSE 81
[2022-12-20 13:19] LABS: A/G RATIO 1.2; ALANINE AMINOTRANSFERASE,ALT 48 U/L (14-59); ALBUMIN 3.9 g/dL (3.4-5.0); ALKALINE PHOSPHATASE 116 U/L (46-116); ANION GAP 17.6 mEq/L (7-13); ASPARTATE AMNIOTRANSFERASE,AST 20 U/L (15-37); B-TYPE NATRIURETIC PEPTIDE,BNP 31 pg/ml (0-100); BILIRUBIN TOTAL 0.5 mg/dL (0.2-1.0); BLOOD UREA NITROGEN,BUN 22 mg/dL (7-18); BUN/CREATININE RATIO 22.9 (No establ ref range); CALCIUM 9.2 mg/dL (8.5-10.1); CARBON DIOXIDE,CO2 22 mmol/L (21-32); CHLORIDE,CL 100 mmol/L (98-107); CREATININE 0.96 mg/dL (0.55-1.02); GLUCOSE RANDOM 143 mg/dL (70-99); POTASSIUM,K 4.6 mmol/L (3.5-5.1); PROTEIN TOTAL,TP 7.2 g/dL (6.4-8.2); SODIUM,NA 135 mmol/L (136-145)
[2022-12-20 13:20] LABS: ESTIMATED GFR 64 mL/min (>=60)
[2022-12-20 13:21] LABS: LACTIC ACID 2.1 mmol/L (0.4-2.0)
[2022-12-20 13:37] LABS: CORONAVIRUS COVID-19 NAA NEGATIVE (NEGATIVE); INFLUENZA A NAA NEGATIVE (NEGATIVE); INFLUENZA B NAA NEGATIVE (NEGATIVE); RESPIRATORY SYNCYTIAL VIR NAA NEGATIVE (NEGATIVE)
== END 2022-12-20 16:03 | disposition home or self-care (01) ==
LOC: DL.ED 12:35
DX: J40 Bronchitis, not specified as acute or chronic (principal); I10 Essential (primary) hypertension; I25.2 Old myocardial infarction; E78.00 Pure hypercholesterolemia, unspecified; J44.9 Chronic obstructive pulmonary disease, unspecified; K21.9 Gastro-esophageal reflux disease without esophagitis; E11.9 Type 2 diabetes mellitus without complications; E66.9 Obesity, unspecified; Z68.28 Body mass index [BMI] 28.0-28.9, adult; Z86.16 Personal history of COVID-19; Z88.8 Allergy status to other drugs, medicaments and biological substances; Z88.5 Allergy status to narcotic agent; Z88.6 Allergy status to analgesic agent; Z88.2 Allergy status to sulfonamides; Z79.899 Other long term (current) drug therapy; Z79.82 Long term (current) use of aspirin; Z79.84 Long term (current) use of oral hypoglycemic drugs; Z20.822 Contact with and (suspected) exposure to COVID-19
CPT/HCPCS: 0241U; 36415; 71045; 80053; 83605; 83880; 84145; 84484; 85025; 93005; 93010; 99283; 99285

== ENCOUNTER 2023-03-07 14:15 | Emergency (ER) | payer MEDICARE, MEDICAID ==
[2023-03-07 15:50] VITALS: BP 181/86; PULSE 77
[2023-03-07] MEDS ORDERED: Albuterol/Ipratropium 3.0-0.5 MG/3 ML Neb Soln NEB ONE (16:14)
[2023-03-07 16:36] LABS: BASOPHILS PERCENT AUTO 0.3 % (0.0-1.0); EOSINOPHILS PERCENT AUTO 1.7 % (1.0-3.0); HEMATOCRIT 44.7 % (37.0-47.0); HEMOGLOBIN 14.2 g/dL (12.0-16.0); LYMPHOCYTES PERCENT AUTO 31.1 % (20.5-50.1); MEAN CORPUSCULAR HEMOGLOBIN 27.9 pg (27.0-34.0); MEAN CORPUSCULAR HGB CONC 31.8 g/dL (33.0-35.0); MEAN CORPUSCULAR VOLUME 87.8 fL (80-100); MONOCYTES PERCENT AUTO 8.2 % (2-8); NEUTROPHILS PERCENT AUTO 58.7 % (42.2-75.2); PLATELET COUNT,PLT 282 10^3/uL (150-450); RED BLOOD CELL COUNT 5.09 10^6/uL (4.2-5.4); WHITE BLOOD CELL COUNT,WBC 9.7 10^3/uL (5.0-10.0)
[2023-03-07 17:08] LABS: A/G RATIO 1.3; ALANINE AMINOTRANSFERASE,ALT 40 U/L (14-59); ALKALINE PHOSPHATASE 95 U/L (46-116); ANION GAP 13.7 mEq/L (7-13); ASPARTATE AMNIOTRANSFERASE,AST 21 U/L (15-37); BILIRUBIN TOTAL 0.5 mg/dL (0.2-1.0); BLOOD UREA NITROGEN,BUN 15 mg/dL (7-18); BUN/CREATININE RATIO 18.3 (No establ ref range); CALCIUM 9.6 mg/dL (8.5-10.1); CARBON DIOXIDE,CO2 28 mmol/L (21-32); CHLORIDE,CL 100 mmol/L (98-107); CREATININE 0.82 mg/dL (0.55-1.02); EST CRCL DRUG DOSING (CG) 58.26 mL/min; GLUCOSE RANDOM 124 mg/dL (70-99); POTASSIUM,K 4.7 mmol/L (3.5-5.1); PROTEIN TOTAL,TP 7.1 g/dL (6.4-8.2); SODIUM,NA 137 mmol/L (136-145)
[2023-03-07 17:18] LABS: ESTIMATED GFR 77 mL/min (>=60)
== END 2023-03-07 18:17 | disposition home or self-care (01) ==
LOC: DL.ED 14:15
DX: J06.9 Acute upper respiratory infection, unspecified (principal); E78.00 Pure hypercholesterolemia, unspecified; I10 Essential (primary) hypertension; E11.9 Type 2 diabetes mellitus without complications; E66.9 Obesity, unspecified; Z68.28 Body mass index [BMI] 28.0-28.9, adult; Z88.5 Allergy status to narcotic agent; Z88.8 Allergy status to other drugs, medicaments and biological substances; Z88.2 Allergy status to sulfonamides; Z79.899 Other long term (current) drug therapy; Z79.82 Long term (current) use of aspirin; Z79.84 Long term (current) use of oral hypoglycemic drugs; Z86.16 Personal history of COVID-19; Z90.49 Acquired absence of other specified parts of digestive tract; Z90.710 Acquired absence of both cervix and uterus; Z87.891 Personal history of nicotine dependence
CPT/HCPCS: 36415; 71046; 80053; 84145; 85025; 94640; 99284; 99285; J7620-GY

== ENCOUNTER 2023-06-30 18:18 | Emergency (ER) | payer MEDICARE, MEDICAID ==
[2023-06-30] MEDS: Sodium Chloride 0.9% 10 ML Syringe FLUSH PRN (18:46)
[2023-06-30 18:47] LABS: BASOPHILS PERCENT AUTO 0.3 % (0.0-1.0); EOSINOPHILS PERCENT AUTO 1.3 % (1.0-3.0); HEMATOCRIT 44.8 % (37.0-47.0); HEMOGLOBIN 14.7 g/dL (12.0-16.0); MEAN CORPUSCULAR HGB CONC 32.8 g/dL (33.0-35.0); MEAN CORPUSCULAR VOLUME 85.3 fL (80-100); MONOCYTES PERCENT AUTO 10.2 % (2-8); NEUTROPHILS PERCENT AUTO 54.2 % (42.2-75.2); PLATELET COUNT,PLT 292 10^3/uL (150-450); RED BLOOD CELL COUNT 5.25 10^6/uL (4.2-5.4)
[2023-06-30] MEDS: Nitroglycerin 0.4 MG Tab.SL SL ONE ×2 (18:47→19:17)
[2023-06-30] MEDS: Aspirin 81 MG Tab.Chew PO ONE (18:47)
[2023-06-30 18:56] VITALS: PULSE 80
[2023-06-30 19:01] LABS: A/G RATIO 1.4; ALANINE AMINOTRANSFERASE,ALT 27 U/L (14-59); ALBUMIN 4.4 g/dL (3.4-5.0); ALKALINE PHOSPHATASE 121 U/L (46-116); ANION GAP 15.4 mEq/L (7-13); ASPARTATE AMNIOTRANSFERASE,AST 11 U/L (15-37); BILIRUBIN TOTAL 0.3 mg/dL (0.2-1.0); BLOOD UREA NITROGEN,BUN 17 mg/dL (7-18); BUN/CREATININE RATIO 18.7 (No establ ref range); CALCIUM 9.5 mg/dL (8.5-10.1); CARBON DIOXIDE,CO2 26 mmol/L (21-32); CHLORIDE,CL 100 mmol/L (98-107); CREATININE 0.91 mg/dL (0.55-1.02); EST CRCL DRUG DOSING (CG) 54.62 mL/min; GLUCOSE RANDOM 159 mg/dL (70-99); POTASSIUM,K 4.4 mmol/L (3.5-5.1); PROTEIN TOTAL,TP 7.6 g/dL (6.4-8.2); SODIUM,NA 137 mmol/L (136-145)
[2023-06-30] MEDS: Iopamidol 755 Mg/ML 100 ML Bottle IVPUSH ONE (19:06)
[2023-06-30 19:10] LABS: C-REACTIVE PROTEIN < 0.50 ng/dL (<=0.50); ESTIMATED GFR 68 mL/min (>=60)
[2023-06-30 19:17] VITALS: BP 158/81
[2023-06-30 19:25] LABS: INR 0.9 (0.9-1.2)
[2023-06-30 19:47] LABS: PROTHROMBIN TIME 9.3 SEC (9.0-12.0)
[2023-06-30 20:01] LABS: APPEARANCE,URINE CLEAR (CLEAR); BILIRUBIN,URINE NEGATIVE (NEGATIVE); COLOR,URINE YELLOW (YELLOW); GLUCOSE,URINE 500 (NEGATIVE); KETONES,URINE NEGATIVE (NEGATIVE); LEUKOCYTE ESTERASE,URINE NEGATIVE (NEGATIVE); NITRITE,URINE NEGATIVE (NEGATIVE); OCCULT BLOOD,URINE NEGATIVE (NEGATIVE); PROTEIN,URINE NEGATIVE (NEGATIVE); UROBILINOGEN,URINE 0.2 mg/dL (0.2-1.0)
[2023-06-30 20:01] LABS: AMPHETAMINES,URINE NEGATIVE (NEGATIVE); BARBITURATES,URINE NEGATIVE (NEGATIVE); BENZODIAZEPINE,URINE NEGATIVE (NEGATIVE); MDMA (ECSTASY), URINE NEGATIVE (NEGATIVE); METHADONE,URINE NEGATIVE (NEGATIVE); METHAMPHETAMINES,URINE NEGATIVE (NEGATIVE); OPIATES,URINE NEGATIVE (NEGATIVE); OXYCODONE,URINE NEGATIVE (NEGATIVE); PHENCYCLIDINE,URINE NEGATIVE (NEGATIVE); TCA,URINE NEGATIVE (NEGATIVE)
== END 2023-06-30 21:33 | disposition home or self-care (01) ==
LOC: DL.ED 18:18
DX: I16.9 Hypertensive crisis, unspecified (principal); E78.00 Pure hypercholesterolemia, unspecified; I10 Essential (primary) hypertension; I25.2 Old myocardial infarction; J44.9 Chronic obstructive pulmonary disease, unspecified; K21.9 Gastro-esophageal reflux disease without esophagitis; E11.9 Type 2 diabetes mellitus without complications; E66.9 Obesity, unspecified; I25.10 Atherosclerotic heart disease of native coronary artery without angina pectoris; Z86.19 Personal history of other infectious and parasitic diseases; Z86.16 Personal history of COVID-19; Z90.49 Acquired absence of other specified parts of digestive tract; Z79.82 Long term (current) use of aspirin; Z79.899 Other long term (current) drug therapy; Z88.8 Allergy status to other drugs, medicaments and biological substances; Z88.5 Allergy status to narcotic agent; Z95.5 Presence of coronary angioplasty implant and graft; Z88.6 Allergy status to analgesic agent; Z88.2 Allergy status to sulfonamides; Z68.36 Body mass index [BMI] 36.0-36.9, adult
CPT/HCPCS: 36415; 71275; 80053; 80305; 81003; 84484; 85025; 85610; 85730; 86140; 93005; 93010; 99284; 99285; A9270; Q9967; J3490

== ENCOUNTER 2024-01-17 10:44 | Emergency (ER) | payer MEDICARE, MEDICAID ==
[2024-01-17 11:09] LABS: BASOPHILS PERCENT AUTO 0.3 % (0.0-1.0); HEMATOCRIT 43.2 % (37.0-47.0); LYMPHOCYTES PERCENT AUTO 18.3 % (20.5-50.1); MEAN CORPUSCULAR HEMOGLOBIN 28.6 pg (27.0-34.0); MEAN CORPUSCULAR HGB CONC 32.4 g/dL (33.0-35.0); MEAN CORPUSCULAR VOLUME 88.3 fL (80-100); MONOCYTES PERCENT AUTO 8.6 % (2-8); NEUTROPHILS PERCENT AUTO 71.8 % (42.2-75.2); PLATELET COUNT,PLT 268 10^3/uL (150-450); RED BLOOD CELL COUNT 4.89 10^6/uL (4.2-5.4); WHITE BLOOD CELL COUNT,WBC 10.7 10^3/uL (5.0-10.0)
[2024-01-17 11:20] LABS: APPEARANCE,URINE CLEAR (CLEAR); BILIRUBIN,URINE NEGATIVE (NEGATIVE); COLOR,URINE YELLOW (YELLOW); GLUCOSE,URINE 500 (NEGATIVE); KETONES,URINE NEGATIVE (NEGATIVE); LEUKOCYTE ESTERASE,URINE NEGATIVE (NEGATIVE); NITRITE,URINE NEGATIVE (NEGATIVE); OCCULT BLOOD,URINE NEGATIVE (NEGATIVE); PH,URINE 5.5 (5.0-9.0); PROTEIN,URINE NEGATIVE (NEGATIVE); UROBILINOGEN,URINE 0.2 mg/dL (0.2-1.0)
[2024-01-17 11:25] LABS: AMPHETAMINES,URINE NEGATIVE (NEGATIVE); BARBITURATES,URINE NEGATIVE (NEGATIVE); BENZODIAZEPINE,URINE NEGATIVE (NEGATIVE); MDMA (ECSTASY), URINE NEGATIVE (NEGATIVE); METHADONE,URINE NEGATIVE (NEGATIVE); METHAMPHETAMINES,URINE NEGATIVE (NEGATIVE); OPIATES,URINE NEGATIVE (NEGATIVE); OXYCODONE,URINE NEGATIVE (NEGATIVE); PHENCYCLIDINE,URINE NEGATIVE (NEGATIVE); TCA,URINE NEGATIVE (NEGATIVE)
[2024-01-17 11:27] LABS: B-TYPE NATRIURETIC PEPTIDE,BNP 70 pg/ml (0-100)
[2024-01-17 11:28] LABS: A/G RATIO 1.4; ALANINE AMINOTRANSFERASE,ALT 29 U/L (14-59); ALBUMIN 4.1 g/dL (3.4-5.0); ALKALINE PHOSPHATASE 112 U/L (46-116); ANION GAP 13.5 mEq/L (7-13); ASPARTATE AMNIOTRANSFERASE,AST 17 U/L (15-37); BILIRUBIN TOTAL 0.5 mg/dL (0.2-1.0); BLOOD UREA NITROGEN,BUN 19 mg/dL (7-18); BUN/CREATININE RATIO 22.9 (No establ ref range); CALCIUM 9.7 mg/dL (8.5-10.1); CARBON DIOXIDE,CO2 28 mmol/L (21-32); CHLORIDE,CL 103 mmol/L (98-107); CREATININE 0.83 mg/dL (0.55-1.02); EST CRCL DRUG DOSING (CG) 59.89 mL/min; GLUCOSE RANDOM 128 mg/dL (70-99); POTASSIUM,K 4.5 mmol/L (3.5-5.1); SODIUM,NA 140 mmol/L (136-145)
[2024-01-17 11:34] LABS: C-REACTIVE PROTEIN < 0.50 ng/dL (<=0.50); ESTIMATED GFR 76 mL/min (>=60)
[2024-01-17] MEDS: Acetaminophen/HYDROcodone 325-5 MG Tab PO ONE (12:12)
[2024-01-17] MEDS: Sodium Chloride 0.9% 10 ML Syringe FLUSH PRN (12:12)
[2024-01-17 13:36] VITALS: BP 119/58; PULSE 58
== END 2024-01-17 13:51 | disposition home or self-care (01) ==
LOC: DL.ED 10:44
DX: J06.9 Acute upper respiratory infection, unspecified (principal); M94.0 Chondrocostal junction syndrome [Tietze]; J44.1 Chronic obstructive pulmonary disease with (acute) exacerbation; I15.8 Other secondary hypertension; E78.00 Pure hypercholesterolemia, unspecified; I10 Essential (primary) hypertension; I25.2 Old myocardial infarction; K21.9 Gastro-esophageal reflux disease without esophagitis; E11.9 Type 2 diabetes mellitus without complications; E66.9 Obesity, unspecified; Z68.27 Body mass index [BMI] 27.0-27.9, adult; Z86.16 Personal history of COVID-19; Z90.49 Acquired absence of other specified parts of digestive tract; Z90.710 Acquired absence of both cervix and uterus; Z87.891 Personal history of nicotine dependence; Z79.82 Long term (current) use of aspirin; Z79.84 Long term (current) use of oral hypoglycemic drugs; Z79.899 Other long term (current) drug therapy; Z88.9 Allergy status to unspecified drugs, medicaments and biological substances; Z88.6 Allergy status to analgesic agent; Z88.8 Allergy status to other drugs, medicaments and biological substances; Z88.5 Allergy status to narcotic agent; Z88.2 Allergy status to sulfonamides
CPT/HCPCS: 36415; 70450; 71045; 74018; 80053; 80305-QW; 81003; 83880; 84484; 85025; 85379; 86140; 87428-QW; 99285; A9270-GY; J3490